=== PATIENT | male | born 1940 | race Caucasian/White ===

== ENCOUNTER → 2022-02-26 11:52 | Outpatient (CLI) | payer OTHER, SELFPAY ==
--- NOTE | 2022-02-26 | DI.MRI.S_ITS ---
PROCEDURE: MR LUMBAR SPINE WO CON INDICATIONS: Radiculopathy, lumbar region TECHNIQUE: Noncontrast sagittal T1 spin echo and T2 fast echo, sagittal STIR, and T2 fast spin echo through the lumbar spine. In cases with scoliosis, additional coronal T2 fast spin echo may be performed. COMPARISON: None. FINDINGS: Image quality: Excellent. Alignment and Curvature: There is S shaped scoliosis. There is minimal retrolisthesis seen T12-L1, L1-L2, L2-L3, and L3-L4. Mild grade 1 anterolisthesis is seen at L4-L5. Bone Marrow: Marrow is of normal overall signal. No acute vertebral body compression fractures. Spinal Cord: Conus medullaris terminates at the L1 level. Visualized cord demonstrates normal signal and size. Paraspinous Soft Tissues: No paravertebral masses. Lower thoracic spine degenerative changes are seen. T12-L1: At least moderate loss of disc height and disc signal can be seen. Moderate disc bulge is seen, which is slightly eccentric to the left. There is mild right-sided and [id number] left-sided facet hypertrophy seen. There is moderate left-sided and mild right-sided neural foraminal narrowing. Mild to moderate central canal narrowing is seen. L1-L2: At least moderate loss of disc height and disc signal can be seen. Mild to moderate disc bulge is seen. Moderate facet joint hypertrophy is seen. Associated hypertrophy of the ligamentum flavum can be seen. There is at least moderate left-sided and moderate right-sided neural foraminal narrowing. Moderate central canal narrowing is seen. L2-L3: Moderate to severe loss of disc height and disc signal can be seen. Reactive marrow endplate changes are seen, which demonstrate mixed T1 weighted and T2-weighted signal, and are attributed to a combination of edema and fatty metaplasia (Modic type I and Modic type II changes). Moderate generalized disc bulge is seen. Moderate facet hypertrophy is seen, right worse than left. There is moderate to severe right-sided and at least moderate left-sided neural foraminal narrowing. There is a degree of compression seen upon the exiting nerve roots. At least moderate central canal narrowing is seen. L3-L4: Moderate to severe loss of disc height and disc signal can be seen. Reactive marrow endplate changes are seen, which are hyperintense on T1-weighted and T2-weighted imaging and most consistent with fatty metaplasia (Modic type II changes). There is at least moderate disc bulge seen, which is eccentric to the right. Moderate facet hypertrophy is seen, right worse than left. Associated hypertrophy of the ligamentum flavum can be seen. There is moderate to severe right-sided and at least moderate left-sided neural foraminal narrowing. There is a degree of compression seen upon the exiting nerve roots. At least moderate central canal narrowing is seen. L4-L5: Moderate loss of disc height is seen. Loss of disc signal is seen. At least moderate disc bulge is seen, with a central disc protrusion. Prominent facet hypertrophy is seen. Associated hypertrophy of the ligamentum flavum can be seen. There is moderate to severe bilateral neural foraminal narrowing seen, with an associated a degree of compression seen upon the exiting nerve roots. There is severe central narrowing seen at this level, as on series 8, image 5. L5-S1: Mild loss of disc height is seen. Loss of disc signal is seen. Mild to moderate disc bulge is seen, with a mild central disc protrusion. There is a focal annular fissure seen posteriorly. At least moderate facet hypertrophy is seen. Moderate bilateral neural foraminal narrowing is seen. At least moderate central canal narrowing is seen. IMPRESSION: Multiple levels of prominent lumbar spine degenerative change are seen, which are overall worst at L4-L5 level. Several sites of significant neural foraminal narrowing can be seen, with associated exiting nerve root compression. Dictated by: Donnie Arndt M.D. on 02/26/2022 at 15:42 Approved by: Donnie Arndt M.D. on 02/26/2022 at 15:47
== END ==
PROVIDERS: PCP Family Medicine; Referring Provider Orthopaedic Surgery; Visit Provider Orthopaedic Surgery
DX: M47.26 Other spondylosis with radiculopathy, lumbar region (principal); M47.27 Other spondylosis with radiculopathy, lumbosacral region; M48.061 Spinal stenosis, lumbar region without neurogenic claudication; M48.07 Spinal stenosis, lumbosacral region
CPT/HCPCS: 72148

== ENCOUNTER → 2022-03-11 10:48 | Outpatient (CLI) | payer MEDICARE, SELFPAY ==
--- NOTE | 2022-03-11 | DI.CT.S_ITS ---
PROCEDURE: CT LUMBAR SPINE WO CON INDICATIONS: lumbar stenosis with neurogenic claudication TECHNIQUE: Noncontrast 3 mm thick sections acquired from the T12 level to the sacrum. Sagittal and coronal reformats were constructed. For radiation dose reduction, the following was used: automated exposure control. COMPARISON: None. FINDINGS: Image quality: Excellent. Bones: There is normal bony alignment. No acute vertebral body compression fractures. No suspicious lytic or blastic bony lesions. No pars defects. T11-12: Disc space narrowing, vacuum disc changes, endplate degenerative changes, anterior and posterior disc osteophytes, and diffuse disc bulge. Moderate bilateral foraminal stenosis. Moderate central canal stenosis. T12-L1: Disc space narrowing, vacuum disc changes, endplate degenerative changes, anterior and posterior disc osteophytes, and diffuse disc bulge. Mild right and moderate left foraminal stenosis. L1-L2: Disc space narrowing, vacuum disc changes, endplate degenerative changes, anterior and posterior disc osteophytes, and diffuse disc bulge. Mild bilateral foraminal stenosis. The central canal appears patent L2-L3: Disc space narrowing, vacuum disc changes, endplate degenerative changes, anterior and posterior disc osteophytes, and diffuse disc bulge. Moderate right and mild left foraminal stenosis. The central canal appears patent L3-L4: Disc space narrowing, vacuum disc changes, endplate degenerative changes, anterior and posterior disc osteophytes, and diffuse disc bulge. Moderate right and mild left foraminal stenosis. Moderate to severe central canal stenosis. L4-L5: Disc space narrowing, vacuum disc changes, endplate degenerative changes, anterior and posterior disc osteophytes, and diffuse disc bulge. Severe central canal stenosis. L5-S1: Disc space narrowing, vacuum disc changes, endplate degenerative changes, anterior and posterior disc osteophytes, and diffuse disc bulge. Moderate right and no left foraminal stenosis. Central canal stenosis. Soft tissues: No retroperitoneal masses or hematomas. Visualized aorta is normal in caliber. IMPRESSION: 1. Multilevel severe lumbar spondylosis with loss of disc space height, endplate degenerative changes, vacuum disc changes, disc osteophytes, facet arthrosis, and multilevel foraminal stenosis. 2. Central canal stenosis at multiple levels most prominently at T11-12, L2-3, L3-4, L4-5, and L5-S1. Dictated by: Sreekanth Grimm M.D. on 03/11/2022 at 12:13 Approved by: Sreekanth Grimm M.D. on 03/11/2022 at 12:32
== END ==
PROVIDERS: PCP Family Medicine; Referring Provider Orthopaedic Surgery Orthopaedic Surgery of the Spine; Visit Provider Orthopaedic Surgery Orthopaedic Surgery of the Spine
DX: M48.062 Spinal stenosis, lumbar region with neurogenic claudication (principal); M48.07 Spinal stenosis, lumbosacral region; M48.04 Spinal stenosis, thoracic region; M47.816 Spondylosis without myelopathy or radiculopathy, lumbar region
CPT/HCPCS: 72131

== ENCOUNTER → 2022-04-15 10:38 | Outpatient (CLI) | payer MEDICARE, SELFPAY ==
[2022-04-15 11:39] LABS: Add Manual Diff / Slide Review NO; Basophils Absolute Auto 100 /uL (0-100); Eosinophils Absolute Auto 200 /uL (0-450); Eosinophils Percent Auto 3.4 % (2-4); Hematocrit 41.6 % (41-53); Hemoglobin 14.3 g/dL (13.5-17.5); Lymphocytes Absolute Auto 1400 /uL (1100-4500); Lymphocytes Percent Auto 22.5 % (25-40); Mean Corpuscular HGB Conc 34.3 % (30-36); Mean Corpuscular Hemoglobin 32.5 PG (26-34); Mean Corpuscular Volume 94.8 fL (80-100); Monocytes Absolute Auto 500 /uL (0-900); Monocytes Percent Auto 8.3 % (3-14); Neutrophils Absolute Auto 4100 /uL (1500-7000); Neutrophils Percent Auto 64.8 % (50-75); Platelet Count 205 X10^3/uL (150-400); Red Blood Cell Count 4.39 X10^6/uL (4.5-5.9); Red Cell Distribution Width 13.9 % (11.6-14.8); White Blood Cell Count 6.4 X10^3/uL (4.5-11.0)
[2022-04-15 11:44] LABS: Hemoglobin A1C% w Est Avg Glu 5.3 % (4.0-6.0)
[2022-04-15 11:54] LABS: BUN Creatinine Ratio 23.4 (6-22); Blood Urea Nitrogen 18 mg/dL (9-20); Calcium 9.6 mg/dL (8.4-10.2); Carbon Dioxide 27 mmol/L (22-32); Chloride 106 mmol/L (98-107); Estimated Glomerular Filt Rate > 60 mL/min (>60); Glucose 102 mg/dL (80-110); HEMOLYSIS < 15 (0-50); Potassium 4.3 mmol/L (3.4-5.1); Sodium 141 mmol/L (137-145)
== END ==
PROVIDERS: PCP Family Medicine; Referring Provider Orthopaedic Surgery Orthopaedic Surgery of the Spine; Visit Provider Orthopaedic Surgery Orthopaedic Surgery of the Spine
DX: Z01.812 Encounter for preprocedural laboratory examination (principal); R73.9 Hyperglycemia, unspecified; Z01.818 Encounter for other preprocedural examination
CPT/HCPCS: 36415; 80048; 83036; 85025; 93005

== ENCOUNTER → 2022-05-09 10:09 | Outpatient (CLI) | payer MEDICARE, SELFPAY ==
[2022-05-09 11:00] LABS: COVID19 -Nasal RAPID Negative (Negative)
== END ==
PROVIDERS: PCP Family Medicine; Referring Provider Orthopaedic Surgery Orthopaedic Surgery of the Spine; Visit Provider Orthopaedic Surgery Orthopaedic Surgery of the Spine
DX: Z20.822 Contact with and (suspected) exposure to COVID-19 (principal)
CPT/HCPCS: 87635; C9803

== ENCOUNTER 2022-05-12 08:14 | Inpatient (IN) | payer MEDICARE, SELFPAY ==
[2022-05-05 08:43] VITALS: BMI 23.5
[2022-05-12] VITALS (13 sets, daily range): BP systolic 116–164; BP diastolic 62–87; PULSE 60–88; RESP 14–20; TEMP 35.7–37; O2SAT 95–99; BMI 23.3
[2022-05-12] MEDS: LACTATED RINGERS 1,000 ML 42 ML IV ×2 (08:33→10:51)
--- NOTE | 2022-05-12 09:22 | PM.PREOP ---
Pre-operative Note COVID-19 COVID-19 status: Negative Result date/Date tested (Pos, Neg/Pending): 05/11/22 Criteria for continued procedure: Expected advancement of disease process, Possibility delay results in more complex future surgery or treatment, Increased loss of function, Continuing or worsening of significant or severe pain, Deterioration of the patient's condition or overall health and Delay expected to result in less-positive ultimate med/surg outcome Interval Note History & Physical reviewed/Exam performed by Physician: Yes Changes to H&P: No
[2022-05-12] MEDS: CEFAZOLIN 2 GM/100 ML PREMIX 100 ML IV ×3 (10:24→21:28)
--- NOTE | 2022-05-12 10:39 | SUR.OPER ---
Prone on spine table, head in foam head support, padded chest and pelvic supports, gel pad at knees, lower legs supported by pillows; nipples, genitalia and toes free of pressure, arms secured on foam padded arm boards at <90 degrees abduction. Tape over blanket at thigh secured to table.
[2022-05-12] MEDS: BUPIVACAINE LIPOSOME 266 MG/20 ML VIAL INJ (10:45)
[2022-05-12] MEDS: BUPIVACAINE 0.5% W/ EPI (PF) 30 ML VIAL INJ (10:45)
--- NOTE | 2022-05-12 14:20 | DI.RAD.S_ITS ---
PROCEDURE: XR LUMBAR SPINE 2-3V INDICATIONS: L3-4, L4-5 TLIF (ROOBOT) TECHNIQUE: Multiple spot fluoroscopic intraoperative images of the lumbar spine COMPARISON: [facility], [place], CT LUMBAR SPINE WO CON, 03/11/2022, 10:55. FINDINGS: Spot fluoroscopic intraoperative images demonstrate placement of posterior fixation hardware at L3 through L5 with pedicle screws, interbody rods, and disc spacers. Levoconvex curvature of spine is noted. There is limited evaluation of osseous structures. IMPRESSION: Status post posterior lumbar spinal fixation at L3 through L5. Approved by: Emerson Benito M.D. on 05/12/2022 at 15:44
--- NOTE | 2022-05-12 14:22 | PM.OP.1 ---
Operative Date/Time/Diagnoses Date of procedure: 05/12/22 Time of procedure: 11:00 Pre-op diagnosis: 1. L3-4, L4-5 spondylolisthesis 2. Lumbar spinal stenosis with neurogenic claudication Post-op diagnosis: same Procedure & Clinicians Procedure: 1. L3-4, L4-5 Postero-lateral and posterior interbody fusion 2. L3-4, L4-5 interbody cage placement. 3. L3-4, L4-5 decompressive laminectomy with bilateral facetecomies 4. L3-4, L4-5 Posterior segmental instrumentation 5. Ludlow of bone marrow from iliac crest 6. Utilization of microsurgical technique and operating microscope Same procedure as scheduled: Yes Indications: Patient has been having chronic back pain and worsening lumbar radiculopathy and symptoms of neurogenic claudication. Patient failed multiple conservative management with worsening pain weakness and numbness in his lower extremity. Patient has been having difficulty performing activity of daily living. After discussing risks benefits of treatment options, patient elected proceed with surgery. Surgeon: Marek Zelaya Scada Operator: Dameon Samayoa Click Yes if Unassisted: No Anesthesia Type: General Operative Notes Closure Type: primary Specimen(s): none sent Prosthetic devices, grafts, tissues, transplants, or devices: Globus CREO MIS screws, Rise cages Applied: catheter Estimated Blood Loss (mL): 150 Blood products transfused: none Procedure in detail: Patient was seen in the preoperative area. Risks and benefits of the surgery was discussed with the patient. Informed consent was obtained from the patient and placed in the chart. Surgical site was marked. Patient was taken to the operative room. General anesthesia was administered. Prophylactic antibiotic was given to the patient less than 30 min before the incision was made. Patient was placed into a prone position on the Cyrus table. Patient's back was then prepped and draped in the sterile fashion. Time-out was performed at this time. After patient was prepped and draped, patient's PSIS was palpated and marked bilaterally. Small 1 cm incision was made over the PSIS for placement of the reference probes. Two trocar was placed into the PSIS 1 on each side. The reference probe was attached to the trocar of the reference apparatus. At this time the C-arm imaging was used to confirm AP and lateral of L3, L4-L5 vertebrae and merged the C-arm imaging using the [employer] robotic navigation system with the CT of the lumbar spine. After successful merging was completed and confirmed, skin marker was used to eloy out the skin incision using the [employer] robotic arm. Bilateral incision was made at this time. Pre templated trajectory was used and guided using the [employer] robotic navigation system for bilateral L3 L4, L5 pedicle screw placement. This was done by using the robotic arm to guide the high-speed bur to make a cortical entry point. Next a drill was placed also using the robotic arm and guided using the navigation system drilling partially through bilateral L3, L4, L5 pedicles. Next L3, L4, L5 pedicle screws it was pre templated and measured was placed onto the power chuck wagon driver and inserted into the pedicles bilaterally. After all 6 screws were placed C-arm imaging was taken of both AP and lateral to confirm the placement. Excellent placement of the screws were confirmed and a matched precisely with the pre planned screw placement using the navigation system. MARs retractor was inserted using GOGETMi / ?.??ivation guidence. Globus MARS retractors was placed inside the incision and docked onto the L3, L4 lamina. Using microsurgical technique and operating microscope, a L3, L4 laminectomy and L3-4, L4-5 facetectomy was performed using a Kerrison rongeur. Patient was found have severe lateral recess and neural foramen stenosis which was fully decompressed after the laminectomy facetectomy. More than 75% of the facets were removed during the process of decompression rendering L3-4, L4-5 level grossly unstable and required a fusion procedure at the same time. The disc space at L3-4, L4-5 was identified, and a total diskectomy was performed at L3-4, L4-5 level. The endplates were decorticated using a rasp and shaver. The total diskectomy and decortication was performed at L3-4, L4-5 level in order to to accomplish a L3-4, L4-5 fusion. The local bone from the laminectomy and facetectomy was saved for local bone grafting. After the total diskectomy and decortication was completed, Trifecta bone graft material was combined with local bone that was harvested earlier. At this time, a separate skin is incision was made over the iliac crest. A Jamshidi needle was inserted into the iliac crest through a separate skin incision. 5 cc of bone marrow aspiration was obtained through the separate skin incision using a Jamshidi needle from the iliac crest. The bone marrow aspiration was combined with local bone and the Trifecta bone grafting material. The bone grafting material was placed into the L3-4, L4-5 interbody space along with expandable cages. One cage each was inserted into the L3-4 L4-5 interbody space along with bone graft material. The cage was expanded to its maximum height using the torque limiting screwdriver. The disc preparation as well as the cage insertion were also performed under navigation guidance. After the cage was placed, AP and lateral C-arm imaging was taken to confirm placement of the cage and excellent position was confirmed. Globus MARS retractor was inserted and docked onto the L3-4, L4-5 posterolateral gutter on the right side. Using the power drill, posterior-lateral decortication was performed at L3-4, L4-5 level until bleeding cortical bone was identified. The remaining bone grafting material was placed into the L3-4, L4-5 posterior lateral gutter he order to accomplish posterolateral fusion at the L3-4, L4-5 level. At this time the tulips were attached to the L3, L4-L5 pedicle screw shanks. After measuring the length of the rods, they were inserted into the tulips of the pedicle screws and locked in place using locking caps and torque limiting screwdriver bilaterally. Total 6 caps and 2 titanium rods was used in order to complete the posterior instrumentation construct. After all the hardware was placed, and confirmed with AP and lateral C-arm imaging, the wound was then irrigated with sterile normal saline and packed with Ray-Gee gauze for 3 min to accomplish hemostasis. After the gauze was removed the deep fascia was closed with #1 Vicryl suture. The subcutaneous layer was closed with 2-0 Vicryl. The skin was closed with skin lakeisha. Patient tolerated the procedure well. There were no complications. Neuro monitoring system was used to monitor patient's neurologic status throughout entire procedure. There was no disturbance of the neural monitoring signals throughout the case. Complications: none Post-operative Condition: stable Disposition: PACU Plan for aftercare: Admit to inpatient hospital
[2022-05-12] MEDS: HYDROMORPHONE 0.5 MG INJ IV (15:59)
[2022-05-12] MEDS: ACETAMINOPHEN 325 MG TABLET 650 MG PO (16:00)
[2022-05-12] MEDS: hydrOXYzine pamoate 25 MG CAPSULE PO (16:01)
[2022-05-12] MEDS: SODIUM CHLORIDE 0.9% 1,000 ML 100 ML IV (16:02)
[2022-05-12] MEDS: methocarbamoL 500 MG TABLET 1000 MG PO (19:37)
[2022-05-12] MEDS: DOCUSATE 100 MG CAPSULE PO (21:27)
[2022-05-12] MEDS: OXYCODONE IR 5 MG TABLET 10 MG PO (21:27)
[2022-05-12] MEDS: ATORVASTATIN 20 MG TABLET PO (21:27)
[2022-05-12] MEDS: SENNOSIDES 8.6 MG TABLET 17.2 MG PO (21:27)
[2022-05-13] MEDS: SODIUM CHLORIDE 0.9% 1,000 ML 100 ML IV (01:36)
[2022-05-13] MEDS: OXYCODONE IR 5 MG TABLET 10 MG PO ×2 (04:50→10:08)
[2022-05-13 05:35] LABS: Hematocrit 33.7 % (41-53); Hemoglobin 11.4 g/dL (13.5-17.5)
[2022-05-13] MEDS: LEVOTHYROXINE 125 MCG TABLET PO (05:52)
[2022-05-13] MEDS: CEFAZOLIN 2 GM/100 ML PREMIX 100 ML IV (05:53)
--- NOTE | 2022-05-13 06:02 | PC.NURSE ---
Patient medicated for pain as needed, able to sleep off and on. Rt. foot remains cool to touch and slightly less in strength than lt. leg.
[2022-05-13 07:18] VITALS: BP 125/64; PULSE 65; RESP 20; TEMP 37.1; O2SAT 95
[2022-05-13] MEDS: DOCUSATE 100 MG CAPSULE PO (08:54)
[2022-05-13] MEDS: LATANOPROST 0.005% OPHTH 2.5 ML 1 DROPS EYE-BOTH (08:54)
[2022-05-13] MEDS: BRIMONIDINE 0.2% OPHTH 5 ML 1 DROPS EYE-LEFT (08:54)
--- NOTE | 2022-05-13 09:45 | PT.IIE ---
Current Diagnoses Spondylolisthesis, lumbar region (05/12/22) Spinal stenosis, lumbar region with neurogenic claudication (05/12/22) Surgery Performed Operation Date: 05/12/22 09:45 Actual Procedures p L3-4, L4-5 TLIF w/ posterior instrumentation, L2-3 Hemilaminectomy -Robot(Not Applicable) - Marek Zelaya MD Surgical History (Last Reviewed 05/13/22 @ 11:14 by Nadine Garcia PA-C) H/O vasectomy Hx of fusion of cervical spine (~1997) Hx of sinus surgery Hx of tonsillectomy Medical History (Last Reviewed 05/13/22 @ 11:14 by Nadine Garcia PA-C) HLD (hyperlipidemia) Hypothyroidism Preglaucoma Spinal stenosis Physical Therapy Inpatient Evaluation/Re-Eval M1 PT/OT-IP Prior Functional Status Start: 05/13/22 11:39 Freq: NEEDED Status: Discharge Protocol: Document 05/13/22 11:05 [facility] (Rec: 05/13/22 11:59 [facility] [id number]) Medical Review Prior Functional Status Communication Independent Mobility and Gait Pt states did not use a device at home. Activities of Daily Living and IADL's Able to do ADl and IADL needs but had pain. Prior Functional Level (Other details) Pt's daughter to stay with him initially and also has a friend that lives close by to be assisting as well. Social History Household Members none Living Arrangements House Number of Floors (Floors) One Floor Number of Stairs To Enter/Railing? One step with right rail. Home Environment Standard Height Toilet,Walk in Shower Home Equipment Four Wheel Walker Additional Social History Comment Pt has a standard walker at home. M1 PT/OT-IP Prior Functional Status Start: 05/13/22 13:25 Freq: NEEDED Status: Active Protocol: Document 05/13/22 09:45 AB (Rec: 05/13/22 13:40 [id number]) Medical Review Prior Functional Status Medical History Reviewed Yes Communication able to make needs known Mobility and Gait pt stated that he is independent with all mobilities and ambulation without AD; stated that L knee usually gives out but has not have any falls Social History Household Members none Living Arrangements House Number of Floors (Floors) One Floor Number of Stairs To Enter/Railing? 1 step to enter Home Environment Standard Height Toilet,Walk in Shower Home Equipment Four Wheel Walker Additional Social History Comment pt's daughters will stay with pt for ~ 2 weeks and his best friend will also come in to assist him pt has a standard walker daugther and friend stated that they can borrow a FWW for him is needed M2 PT-IP Current Condition Start: 05/13/22 13:25 Freq: NEEDED Status: Active Protocol: Document 05/13/22 09:45 AB (Rec: 05/13/22 13:40 AB [email or web address]) Physical Therapy Current Condition Current Condition Evaluation Date 05/13/22 Treatment Diagnosis s/p L3-4, L4-5 TLIF; difficulty in walking Onset Date 05/12/22 M3 PT-IP Subjective Start: 05/13/22 13:25 Freq: NEEDED Status: Active Protocol: Document 05/13/22 09:45 AB (Rec: 05/13/22 13:40 AB [email or web address]) Subjective Physical Therapy Visit Type Type Initial Evaluation Visit Start Time 09:45 Visit Stop Time 10:51 Total Visit Minutes 66 Number of [employer] OFFICER Visits 0 Physical Therapy Visit Comments Patient Comments agreeable to do PT Therapy Pain Assessment Pain When Pain Assessed At Rest Location Lower Back Intensity 1 Scale Used increases to 5/10 with movement Pain Management Techniques Apply Cold,Modification of Treatment,Re-positioning, Timing of Activity with Medications M4 PT-IP Mobility and Gait Start: 05/13/22 13:25 Freq: NEEDED Status: Active Protocol: Document 05/13/22 09:45 AB (Rec: 05/13/22 13:40 AB [email or web address]) PT-Bed Mobility Assessment Rolling Type of Rolling Log Rolling Level of Assist Standby Assistance Supine to Sit Supine to Sit Standby Assistance Sit to Supine Sit to Supine Minimal Assistance,1 Person Assistance PT-Transfer Assessment Sit to and From Stand Sit to and from Stand Minimal Assistance,Moderate Assistance,1 Person Assistance ,Use of Upper Extremities Equipment Transfer Assistive Device Gait Belt,Front Wheeled Walker Orthotic/Prosthetic Devices or Brace: No Transfers Transfer Destination Chair Transfer Technique Stand Step Pivot Transfer Ability Level of Assist Minimal Assistance,Moderate Assistance,1 Person Assistance ,Use of Upper Extremities Comments Mobility Comments pt's daughter and friend in room with pt. educated pt regarding back precautions and log roll bed mobility. completed log roll supine to sit SBA and cues. able to sit on EOB SBA. completed sit to stand x 2 attempts mod A with first attempt and min to mod on 2nd attempts. required max cues for techniques. completed step transfer to chair using FWW min to mod A. completed sit to stand from the chair min to mod A and cues and ambulated in room using FWW mod A ~ 30 ft with (+) L knee buckling with recovery. pt sat back on chair. educated on safety and quads activation on BLE during standing and ambulation. caregiver training conducted. educated daughter on how to use safety belt and how to assist pt. daughter was able to put safety belt on pt and assisted pt with sit to stand and ambulation in room using FWW. daugther was able to safely assist pt. pt completed sit<>supine log roll with daughter assisting with elevating LE up on bed. educated pt and daughter with stair climbing. pt completed ambulated to the platform step. PT assisted pt on first set and pt completed up/down step using FWW min to mod A and cues for safety. pt repeated with daughter assisting and completed safely . pt ambulated back to his chair using FWW min to mod A. increase unsteadiness noted with slight buckling on R knee and pt c/o feeling tired. pt sat on chair and positioned. call light and table placed within reach. Pt and daugther without further concerns. Gait Assessment Gait Gait Assistance Required: Minimum Assistance,Moderate Assistance,1 Person Assist Distance (Feet) 30 Able to Maintain Weight Bearing Status Yes During Gait Assistive Devices Assistive Device Gait Belt,Front Wheeled Walker Orthotic/Prosthetic Devices or Brace: No Gait Deviations General Gait Pattern Antalgic,Decreased Stride Length,Decreased Feet Clearance,Step-to Gait Factors Limiting Gait Function Factors Limiting Gait Function Decreased Activity Tolerance, Decreased Strength,Limited Range of Motion,Pain,Poor Balance,Respiratory Distress Stair Climbing Assessment Evaluation Level of Assist On Stairs Minimal Assistance,Moderate Assistance,1 Person Assistance Devices Stair Climbing Assistive Devices Front Wheel Walker Technique/Endurance Stair Climbing Direction Ascend and Descend Stair Climbing Technique Step to Step Number of Steps Climbed 1 Query Text: Stair Climbing Set # Repetitions (reps) 2 PT-Balance Assessment Sitting Balance and Reactions Static Sitting Balance Ability Normal Dynamic Sitting Balance Ability Good Standing Balance and Reactions Static Standing Balance Ability Fair Dynamic Standing Balance Ability Fair Device Used FWW M5 PT-IP Objective Assessments Start: 05/13/22 13:25 Freq: NEEDED Status: Active Protocol: Document 05/13/22 09:45 AB (Rec: 05/13/22 13:40 AB [id number]) Orientation Orientation/Cognition Level of Alertness Alert Orientation Name,Place,Situation Language Function Ability Hard of Hearing Safety Awareness Decreased Safety Awareness Memory Description Short Term Impaired Gross Range of Motion Lower Extremity ROM Assessment Within Functional Limits Strength Lower Extremity Strength Assessment Bilaterally Impaired Comments Strength Comments RLE: 3+/5 LLE : 4-/5 but iwth (+) crepitus on knee: pt stated that he is pending knee surgery Sensation Assessment Sensation Gross Sensation WNL Muscle Tone Muscle Tone WNL Yes M6 PT-IP Treatment Start: 05/13/22 13:25 Freq: NEEDED Status: Active Protocol: Document 05/13/22 09:45 AB (Rec: 05/13/22 13:40 AB [email or web address]) Physical Therapy Treatment Education Education Provided Precautions,Weight Bearing Status,Post-Op Packet,Safety M7 PT-IP Assessment and Plan Start: 05/13/22 13:25 Freq: NEEDED Status: Active Protocol: Document 05/13/22 09:45 AB (Rec: 05/13/22 13:40 AB [id number]) PT Summary Assessment and Plan Potential Rehabilitation Potential Fair Status of Condition at Evaluation Evolving Summary Impairments Pain,ROM,Strength,Balance, Coordination,Sensation,Tone, Cognition,Bed Mobility, Transfers,Gait,Activity Tolerance Assessment Summary pt requiring min to mod A with mobility and caregiver training conducted. Daughter was able to assist pt with mobility safety. pt may go home when medically stable. recommending use of FWW at this time. pt and family agreed and stated that they will be able to borrow one for pt. Goals Bed Mobility Goal Independent Transfer Goal Independent,Front Wheeled Walker Gait Goal Independent,Front Wheel Walker Gait Distance 100 Other Goals up/down 1 step using FWW SBA Days to Meet Goals 5 Frequency of Treatment Frequency Of Treatment Twice a Day Treatment Plan Physical Therapy Treatment Plan Bed Mobility Training,Transfer Training,Gait Training, Therapeutic Exercise,Balance Retraining,Post Op Education, Discharge Planning,Hot or Cold Pack,Neuromuscular Re-ed, Coordination Retraining,Manual Therapy Precautions Lumbar Precautions Log Roll,No Twisting,Limit Bending,Lifting Restriction of 10 lbs,Gait Belt above Incisional Area Recommendations To Nursing Amount of Assist Needed 1 Person Assist Discharge Recommendations PT Discharge Recommendations Home with / Assist Available,Home Health Transportation Needs at Discharge Private Vehicle,Wheelchair/ Cabulance
--- NOTE | 2022-05-13 11:03 | PM.DS.1 ---
History of Present Illness History of Present Illness Date Patient Seen: 05/13/22 Time Patient Seen: 11:03 Chief complaint: L3-5 TLIF w/ Robot Narrative: Patient is sitting upright in his chair this morning with daughter and friend at bedside. He states he worked with PT this morning and had no difficulty. They have cleared him for discharge. He states his pain is well controlled with medication, discussed medications to be sent to pharmacy. States he has a walker at home and is in the process of getting a seat riser. Patient still has Dietrich catheter in place, his nurse Amberly is taking it out soon. Discharge Providers Provider Date of admission: 05/12/22 08:14 Discharge Date: 05/13/22 Primary care physician: Jann Lopez MD Consults: 05/05/22 14:50 Consult to Anesthesiology Routine Comment: Consulting Provider: Anesthesiologist Reason for consultation: PAC Courtesy re: Abnormal pre-op EKG 05/12/22 15:33 Consult to Occupational Therapy Evaluate & Treat Comment: Physician Instructions: Evaluate and treat Consult to Physical Therapy Evaluate & Treat Comment: Physician Instructions: Evaluate and Treat Discharge provider: Nadine Garcia PA-C Summary Hospital Course Discharge Diagnosis: s/p L3-5 TLIF Hospital Course: Operative Date/Time/Diagnoses Date of procedure: 05/12/22 Time of procedure: 11:00 Pre-op diagnosis: 1. L3-4, L4-5 spondylolisthesis 2. Lumbar spinal stenosis with neurogenic claudication Post-op diagnosis: same Procedure & Clinicians Procedure: 1. L3-4, L4-5 Postero-lateral and posterior interbody fusion 2. L3-4, L4-5 interbody cage placement. 3. L3-4, L4-5 decompressive laminectomy with bilateral facetecomies 4. L3-4, L4-5 Posterior segmental instrumentation 5. [place] of bone marrow from iliac crest 6. Utilization of microsurgical technique and operating microscope Same procedure as scheduled: Yes Indications: Patient has been having chronic back pain and worsening lumbar radiculopathy and symptoms of neurogenic claudication. Patient failed multiple conservative management with worsening pain weakness and numbness in his lower extremity.? Patient has been having difficulty performing activity of daily living.? After discussing risks benefits of treatment options, patient elected proceed with surgery. Surgeon: Marek Zelaya Major Account Representative: Dameon Samayoa Click Yes if Unassisted: No Anesthesia Type: General Operative Notes Closure Type: primary Specimen(s): none sent Prosthetic devices, grafts, tissues, transplants, or devices: Globus CREO MIS screws, Rise cages Applied: catheter Estimated Blood Loss (mL): 150 Blood products transfused: none Status at Discharge Cognitive/behavioral status at discharge: oriented Functional status at discharge: uses cane/walker Overall status at discharge: patient is progressing back to baseline Exam Vital Signs (past 8 hours): - 05/13/22 07:18 Temperature 98.8 F Pulse Rate 65 Respiratory Rate 20 Blood Pressure 125/64 Pulse Oximetry 95 Oxygen Flow Rate 0 Oxygen Delivery Method Room Air Oxygen Flow Rate 0 Narrative Exam Narrative: Awake, alert, and oriented. Strength and sensation intact to bilateral lower extremities, the left has more sensation than right. Bilateral calves soft, compressible, nontender with no palpable masses or cords. Intraoperative bandage clean, dry, and intact. Dietrich catheter in place, passing clear yellow urine. Objective Labs 05/13/22 04:06 Labs: Laboratory Results - last 24 hr 05/12/22 05/13/22 17:42 04:06 Hgb 11.4 L Hct 33.7 L Nasal Screen MRSA (PCR) Negative for mrsa PFSH Medical History HLD (hyperlipidemia) Hypothyroidism Preglaucoma Spinal stenosis Surgical History H/O vasectomy Hx of fusion of cervical spine (~1997) Hx of sinus surgery Hx of tonsillectomy Social History household members: none Smoking Status: Former smoker alcohol intake: current Discharge Assessment & Plan Assessment and Plan Assessment: s/p L3-5 TLIF Discharge Plan Discharge Plan Patient Disposition: Home Nursing Discharge Comment: Discharge home when able to urinate independently Discharge orders & Medications Prescriptions: New oxycodone 5 mg Tablet 10 mg PO Q4-6H PRN (Reason: Pain, Severe (7-10)) Qty: 42 0RF Continued latanoprost 0.005 % Drops 1 drp EYE-BOTH DAILY methocarbamol 500 mg Tablet 1,000 mg PO Q8H PRN (Reason: Muscle spasm/pain) simvastatin 40 mg Tablet 40 mg PO DAILY levothyroxine 125 mcg Tablet 125 mcg PO DAILY brimonidine [Alphagan P] 0.15 % Drops 1 drp EYE-LEFT QAM Excedrin Extra Strength 250-250-65 mg Tablet 2 tab PO Q6H PRN (Reason: Pain) Follow up/Referrals: Jann Lopez MD [Primary Care Provider] - Nadine Garcia PA-C [[employer]] - Marek Zelaya MD [Physician] - (Follow up with Dr. Zelaya as scheduled on 05/22/22 at 10:00am at the [place] office. ) Diet/Activity/Treatments Diet: Diet as Tolerated Activity: Up and walking as physical therapy. No bending, twisting or lifting more than 2 pounds. Cold/Heat Therapy: Ice as needed Skin/Wound/Dressing Care Report to your healthcare provider any signs of infection, such as:: chills, fever, night sweats, unusual drainage and unusual redness Dressing: May shower. Keep dressing clean, dry, and intact until follow up visit. If it gets wet, please call our office for dressing change. Visit Report/Discharge Packet Instructions: DI for Transforaminal Lumbar Interbody Fusion Stand Alone Forms: Patient Portal/API, Stroke Signs & Symptoms, Surgery Discharge Discharge Data Primary Care Provider: Jann Lopez Quality VTE Deep Vein Thrombosis/Pulmonary Embolism Present on Admission: No
--- NOTE | 2022-05-13 11:33 | OT.IP.EVAL ---
Current Diagnoses Spondylolisthesis, lumbar region (05/12/22) Spinal stenosis, lumbar region with neurogenic claudication (05/12/22) Surgery Performed Operation Date: 05/12/22 09:45 Actual Procedures p L3-4, L4-5 TLIF w/ posterior instrumentation, L2-3 Hemilaminectomy -Robot(Not Applicable) - Marek Zelaya MD Past Medical History (Last Reviewed 05/13/22 @ 11:14 by Nadine Garcia PA-C) HLD (hyperlipidemia) Hypothyroidism Preglaucoma Spinal stenosis Surgical History (Last Reviewed 05/13/22 @ 11:14 by Nadine Garcia PA-C) H/O vasectomy Hx of fusion of cervical spine (~1997) Hx of sinus surgery Hx of tonsillectomy Occupational Therapy Inpatient Evaluation/Re-Eval M1 PT/OT-IP Prior Functional Status Start: 05/13/22 11:39 Freq: NEEDED Status: Active Protocol: Document 05/13/22 11:05 [facility] (Rec: 05/13/22 11:59 [facility] [id number]) Medical Review Prior Functional Status Communication Independent Mobility and Gait Pt states did not use a device at home. Activities of Daily Living and IADL's Able to do ADl and IADL needs but had pain. Prior Functional Level (Other details) Pt's daughter to stay with him initially and also has a friend that lives close by to be assisting as well. Social History Household Members none Living Arrangements House Number of Floors (Floors) One Floor Number of Stairs To Enter/Railing? One step with right rail. Home Environment Standard Height Toilet,Walk in Shower Home Equipment Four Wheel Walker Additional Social History Comment Pt has a standard walker at home. M2 OT-IP Current Condition Start: 05/13/22 11:39 Freq: Status: Active Protocol: Document 05/13/22 11:05 [facility] (Rec: 05/13/22 11:59 [facility] [id number]) Occupational Therapy Current Condition Current Condition Evaluation Date 05/13/22 Treatment Diagnosis S/p L3-4 , L4-5 TLIF Diagnosis Onset Date 05/12/22 Post Operative Precautions Lumbar Precautions Log Roll,No Twisting,Limit Bending,Lifting Restriction of 10 lbs,Gait Belt above Incisional Area M3 OT- IP Subjective and Pain Start: 01/24/23 11:39 Freq: Status: Active Protocol: Document 05/13/22 11:05 [facility] (Rec: 05/13/22 11:59 [facility] [id number]) OT- Subjective Occupational Therapy Visit Type Type Initial Evaluation Visit Start Time 11:05 Visit Stop Time 11:33 Total Visit Minutes 28 Occupational Therapy Visit Comments Patient Comments Pt was in the bathroom when OT came to see the pt. Pt's daughter and friend present. Patient/Caregiver Goals To go home. OT Pain Assessment Pain When Pain Assessed During Mobility Pain Present Pain Present Pain Reported Location right hip to leg Intensity 7 Scale Used Numeric (0 - 10) M4 OT- IP ADL's Start: 05/13/22 11:39 Freq: Status: Active Protocol: Document 05/13/22 11:05 [facility] (Rec: 05/13/22 11:59 [facility] [id number]) OT [id number] Comments OT Self-Feeding Comments Not at meal time. OT ADL-Grooming General Evaluation Grooming Ability Independent Areas Needing Assistance Retrieving/Set-up of Grooming Items OT ADL-Oral Care General Eval Oral Care Ability Standby Assistance Areas of Assistance Retrieving/Set-Up of Items Comments Oral Care Comments VC to hinge at his hips or just spit into a cup in order to best follow his back precautions. OT ADL-Dressing General Eval Lower Body Dressing Ability Maximum Assistance Areas Needing Assistance Retrieving/Set-up of Clothing, Socks Comments OT Dressing Comments Able to practice use of sock aid and medical surgical tech for LB dressing needs. OT ADL-Toileting Comments OT Toileting Comments Suggested for use of wipes, urinal and limit fluids later in the day. In addition to call for assistance. Pt's daughter states while getting to the bathroom earlier had a loss of balance. OT ADL-Bathing Comments OT Bathing Comments Pt insistent to shower at home . Suggested to get a shower chair or even tub bench as pt to have a knee sx in the near future, hand held shower spray and long handled brush to help with showering needs. M5 OT- IP IADL's Start: 05/13/22 11:39 Freq: Status: Active Protocol: Document 05/13/22 11:05 [facility] (Rec: 05/13/22 11:59 [facility] [id number]) OT-Instrumental Activities of Daily Living Home Safety Awareness Home Safety Comments Pt is a bit groggy at this time and best to have at least supervision for all needs. Medication Management Medication Management Comments Pt is a bit groggy at this time and best to have at least supervision for all needs. Money Management Money Management Comments Pt is a bit groggy at this time and best to have at least supervision for all needs. Meal Preparation Meal Preparation Comments Pt is a bit groggy at this time and best to have at least supervision for all needs. Utility Driver Utility Driver Comments Pt is a bit groggy at this time and best to have at least supervision for all needs. M6 OT- IP Functional Cognition Start: 05/13/22 11:39 Freq: Status: Active Protocol: Document 05/13/22 11:05 [facility] (Rec: 05/13/22 11:59 [facility] [id number]) Cognitive Factors Limiting Selfcare Function Cognitive Ability Level of Alertness Alert Patient Orientation Name,Place,Situation Attention Span Ability Capable of Focused Attention, Capable of Sustained Attention Ability to Follow Commands Able to Follow One Step Commands with Increased Time, Able to Follow One Step Commands with Repetition Memory Description Short Term Impaired Safety Awareness Underestimates Need for Assistance Cognitive Comments Cognitive Assessment Comments Pt having difficulty to recall and follow his back precautions. Pt needing vc for hand placement and for FWW safety. Pt's daughter able to safely instruct pt for back precautions needs for ADl and mobility needs. M7 OT- IP Mobility and Balance Start: 05/13/22 11:39 Freq: Status: Active Protocol: Document 05/13/22 11:05 [facility] (Rec: 05/13/22 11:59 [facility] [id number]) OT-Transfer Assessment Sit to and From Stand Sit to and from Stand Contact Guard Assistance, Minimal Assistance Transfers Transfer Ability Standby Assistance,Contact Guard Assistance Technique Transfer Destination Chair,Toilet Transfer Technique Stand Step Pivot Devices Transfer Assistive Devices Gait Belt,Front Wheeled Walker Comments Mobility Comments CGA to DURGA to stand form lower surfaces. CGA to close SBA with the FWW. VC to keep the FWW in the proper distance . Pt's daughter able to show good safety for gait belt management and how to assist pt for transfer at this time. OT- Balance Assessment Sitting Balance and Reactions Static Sitting Balance Ability Good Dynamic Sitting Balance Ability Fair Standing Balance and Reactions Static Standing Balance Ability Fair Dynamic Standing Balance Ability Fair M8 OT- IP Objective Assessments Start: 05/13/22 11:39 Freq: Status: Active Protocol: Document 05/13/22 11:05 [facility] (Rec: 05/13/22 11:59 [facility] [id number]) OT-Muscle Tone Assessment Muscle Tone WNL Yes M9 OT- IP Assessment and Plan Start: 05/13/22 11:39 Freq: Status: Active Protocol: Document 05/13/22 11:05 [facility] (Rec: 05/13/22 11:59 [facility] [id number]) OT Summary Assessment and Plan Potential Rehabilitation Potential Good Analytic Complexity at Evaluation Low Summary OT Impairments Pain,Balance,Functional Cognition,Functional Mobility, Grooming,Dressing,Toileting, Bathing,Toilet Transfers, Shower Transfers,Activity Tolerance Progress Towards Goals Progressing Toward Goals,Slow Progress due to Pain,Slow Progress due to Cognition Assessment Summary Pt LOW complexity and main barriers are pain , needing reminders for his back precautions , and one person assist for some ADl and mobility needs. Pt's daughter present for caregiver training and able to safely assist pt for gait belt management, ADl and mobility needs. A shower chair/tub bench, hand held shower spray ,and LB dressing equipment suggested for pt use. Pt to go home with 10/11 assist when medically stable. Suggested to pt's daughter while staying with the pt to look into needs that pt will have as suppose to have knee surgery in the near future and to get the equipment now so able to practice. Goals Self-Feeding Goal Independent Grooming Goal Independent Dressing Goal Independent Toileting Goal Independent Bathing Goal Independent Toilet Transfer Goal Independent Shower Transfer Goal Independent Days to Meet Goals 7 Frequency of Treatment Frequency Of Treatment Once a Day Treatment Plan OT Treatment Plan ADL Training,Functional Cognition Training,Functional Mobility,Patient/Family Education,Discharge Planning Other Treatment Recommendations and Next shower if still here Treatment Focus Discharge Recommendations OT Discharge Recommendations Home with 10/11 Assist Available Home Equipment Needs shower chair versus tub bench, HHSP, LB dressing equipment Transportation Needs at Discharge Private Vehicle
--- NOTE | 2022-05-13 12:00 | CM.DANOTE ---
DCP: Case received, EMR reviewed and met with patient. Introduced self and role. Was able to obtain information regarding patient's baseline activity level prior to surgery, as well as his current living situation. DCP assessment completed with information currently available. Patient is an 82 year old male who admitted yesterday morning to the care of the orthopedic team. PCP: Dr. Lopez at [facility]. Payer: confirmed: [facility]. Patient came to the hospital for a surgical procedure. Patient had L3-4, L4-5 postero-lateral and posterior interbody fusion. Patient has history of spondylolisthesis, lumbar spinal stenosis withneurogenic claudication. Met with patient in his room. He is alert and oriented, pleasant. Confirmed that he does reside alone in [place], off of [address], he has an [place] mailing address. At his baseline, he is independent, does not use any DME, and drives. Confirmed that he sees Dr. Lopez at [facility] for his primary care provider. Stated that his daughter, Ghazala, who just walked in the room with his friend, Trent, will be initially staying with him for a week. His younger daughter, Daly, will then be staying for a week, and his friend, Trent, may also be assisting. P: DCP to continue to follow. Plan is home when stable, he will be working with Júnior Polk RN/Refrigeration Unit Repairer Discharge Planning/Care Management CM Discharge Assessment Start: 05/13/22 11:57 Freq: Status: Active Protocol: Document 05/13/22 11:57 (Rec: 05/13/22 12:00 [id number]) Discharge Planning Assessment Assigned Software Configuration Specialist Yuliya Polk RN/Refrigeration Unit Repairer Advance Directives? Yes Advance Directives on File No History Provided By Patient,Medical Record Prior Living Arrangements House Household Members none Type of transporation used prior to Drives own vehicle admit Independent with ADL's Yes Is patient alert and oriented? Yes Caregiver for Another No Barriers to Discharge No Comment Patient has two daughters and a friend, one daughter will stay with him a week, other daughter will stay after that. Discharge Plan Home Transportation Arrangement Family or friend. Referrals Initiated None needed Whiteboard Updated in Patient Room with Yes name and ext. # of Software Configuration Specialist Review Status In Process Next Review Type Continued Stay Review Pre-Anesthesia Assessment Start: 05/05/22 08:43 Freq: Status: Complete Protocol: Document 05/05/22 08:43 [facility] (Rec: 05/05/22 09:57 [facility] [id number]) Pre-Anesthesia Assessment Preferred Name Estuardo Patient Information Reviewed Via Phone Assessment Assessment Completed With Patient Diagnostic Results BMP/CMP,CBC,EKG Comment Labs/EKG @ [facility] 04/15/22, COVID screen @ [facility] 05/09/22 Primary Care Provider Jann Lopez Seen Specialist in Last 12 Months Yes Specialist Seen Orthopedist Primary Language Austrian Unemployment Benefits Claims Taker Required No Height 5 ft 10 in Weight 164 lb Body Mass Index (BMI) 23.5 Hearing Ability Normal Visual Assist Glasses Dentition Type Teeth, Natural Present,Dental Implants Barriers to Learning None Hx Anesthesia Reactions No: Severe reaction to Demerol It knocked me out completely Hx Family Anesthesia Reaction No Hx Malignant Hyperthermia No Hx Blood Transfusions No Anesthesia Review Requested Yes: PAC courtesy re: abnormal pre-op EKG Additional comment No significant change from prior EKG 01/04/20 obtained, scanned to records Zmt Operator No alcohol intake current alcohol intake frequency a few times a week Smoking Status Former smoker how long ago did patient quit smoking Quit in 1976 Substance Use Type does not use Pain Present Pain Reported Musculoskeletal Symptoms Abnormal Gait,Back Pain, Difficulty Walking,Muscle Spasms,Radiating Pain into Limb History of Falling (Recent or History of No ) Patient is completely paralyzed or No completely immobile Mental Status Oriented to own ability Is patient on oxygen? No Does patient have ARCHULETA/SOB No Hx Sleep Apnea No Currently Taking a Beta Jose Martin No Can You Climb a Flight of Stairs Without Yes SOB Hx Chest Pain No Hx SOB No Hx Syncope or Dizziness No Anti-Coagulant Therapy No Has a Email Developer No Cardiac Testing No Hx Pacemaker/ICD No Pacemaker Rep Required? No Cardiac Clearance Received Not Applicable Diet Type At Home Regular Dysphagia No Gastrointestinal Symptoms None Chronic UTI No Urinary Catheter Present No Hx Urinary Self Catheterization No Diabetes No HgbA1C 5.3 Date 04/15/22 Hx Drug Resistant Organism No Presence of External or Internal Medical Yes: Cervical hardware Devices Have you had any close contact with No someone diagnosed with COVID-19? Received a COVID vaccine? No Marital Status / Lives With none Current Living Arrangements House Number of Floors (Floors) One Floor Support System Child/Children Does the Patient Have Assistance After Yes: Daughters will stay with Surgery pt to assist with care @ [place] Patient Discharge Plan Description Return Home Comment Pt advised possible same day surgery Feels Safe in Current Environment Yes Been Physically Hurt or Threatened By a No Person in Current Environment Do you have thoughts of harming yourself None or others? Are you currently considering suicide? No Do you have a plan to hurt yourself or No Plan others? Do You Have Any Spiritual Beliefs That No May Affect Your HC Choices? Do You Have Any Cultural Practices That No May Affect Your HC Choices? Comment Mormonism Who Can We Speak to About Patient's Care Family, friends Identifying Code for Release of Patient Declines to issue Information Health Care Proxy/Next of Kin Venkata Wilde (good friend) Health Care Proxy Emergency Contact Name Ghazala (daughter) Daly ( daughter) Emergency Contact Phone Number Ghazala: [phone] Daly: [phone] Advance Directives? Yes Advance Directives on File No Requested Patient Bring Advanced Yes Directives DOS Power of Sales And Merchandising Associate Yes Power of Sales And Merchandising Associate Name Venkata Wilde (good friend) Power of Sales And Merchandising Associate PAC Instructions Durable medical equipment, Medications to take/avoid, Nasal antibiotic,No ETOH/ petroleum product on skin DOS, NPO,Pre-surgical wash,Sensory aids,Sturdy shoes/comfortable clothes,Do not bring valuables and remove jewelry
== END 2022-05-13 12:20 | disposition home or self-care (01) | DRG 455 ==
LOC: AC 10:13 → ICU 15:27
PROVIDERS: Admitting Provider Orthopaedic Surgery Orthopaedic Surgery of the Spine; PCP Family Medicine; Referring Provider Orthopaedic Surgery Orthopaedic Surgery of the Spine; Visit Provider Orthopaedic Surgery Orthopaedic Surgery of the Spine
PROC: 0SG10AJ Fusion of 2 or more Lumbar Vertebral Joints with Interbody Fusion Device, Posterior Approach, Anterior Column, Open Approach (ICD-10-PCS; principal; 2022-05-12 09:45)
DX: M43.16 Spondylolisthesis, lumbar region (principal); M48.062 Spinal stenosis, lumbar region with neurogenic claudication; H40.009 Preglaucoma, unspecified, unspecified eye; E78.5 Hyperlipidemia, unspecified; E03.9 Hypothyroidism, unspecified; Z20.822 Contact with and (suspected) exposure to COVID-19; Z87.891 Personal history of nicotine dependence
CPT/HCPCS: 36415; 72100; 76000; 85014; 85018; 87635; 87797; 97162; 97165; 97530; 97535; C9803; C9290; J0330; J0690; J1100; J1170; J2405; J2704

== ENCOUNTER → 2024-06-01 09:58 | Outpatient (CLI) | payer MEDICARE, SELFPAY ==
[2022-05-12 16:41] VITALS: BMI 23.3
--- NOTE | 2024-06-01 10:02 | EKG_ITS ---
[facility] [address] [place] [address] Test Date: 2024-06-01 Pat Name: Sree Reyes Department: [facility] Room: Gender: Male Identity Management Consultant: CISCO : 1940 Requested By: Order Number: [id number] Reading MD: Richard Roberts MD Measurements Intervals [place] Rate: 68 P: 56 ME: 192 QRS: -63 QRSD: 140 T: 47 QT: 424 QTc: 450 Interpretive Statements Normal sinus rhythm Right bundle branch block Left anterior fascicular block Bifascicular block NO SIGNIFICANT CHANGE FROM PRIOR TRACING Electronically Signed On 06-01-2024 11:04:48 PST by Richard Roberts MD
[2024-06-01 10:37] LABS: Add Manual Diff / Slide Review NO; Basophils Absolute Auto 100 /uL (0-100); Basophils Percent Auto 1.1 % (0-2); Eosinophils Absolute Auto 200 /uL (0-450); Eosinophils Percent Auto 3.6 % (2-4); Hematocrit 41.9 % (41-53); Hemoglobin 14.2 g/dL (13.5-17.5); Lymphocytes Absolute Auto 1600 /uL (1100-4500); Lymphocytes Percent Auto 25.3 % (25-40); Mean Corpuscular HGB Conc 33.8 % (30-36); Mean Corpuscular Hemoglobin 32.6 PG (26-34); Mean Corpuscular Volume 96.5 fL (80-100); Monocytes Absolute Auto 600 /uL (0-900); Monocytes Percent Auto 10.2 % (3-14); Neutrophils Absolute Auto 3800 /uL (1500-7000); Neutrophils Percent Auto 59.8 % (50-75); Platelet Count 253 X10^3/uL (150-400); Red Blood Cell Count 4.34 X10^6/uL (4.5-5.9); Red Cell Distribution Width 13.3 % (11.6-14.8); White Blood Cell Count 6.3 X10^3/uL (4.5-11.0)
[2024-06-01 10:58] LABS: BUN Creatinine Ratio 15.5 (6-22); Blood Urea Nitrogen 13 mg/dL (9-20); Calcium 9.8 mg/dL (8.4-10.2); Carbon Dioxide 26 mmol/L (22-32); Chloride 106 mmol/L (98-107); Estimated Glomerular Filt Rate > 60 mL/min (>60); Glucose 110 mg/dL (80-110); HEMOLYSIS < 15 (0-50); Potassium 4.4 mmol/L (3.4-5.1); Sodium 139 mmol/L (137-145)
== END ==
LOC: RESP 10:00
PROVIDERS: PCP Family Medicine; Referring Provider Orthopaedic Surgery Foot and Ankle Surgery; Visit Provider Orthopaedic Surgery Foot and Ankle Surgery
DX: Z01.818 Encounter for other preprocedural examination (principal); Z01.812 Encounter for preprocedural laboratory examination
CPT/HCPCS: 36415; 80048; 85025; 93005

== ENCOUNTER 2024-07-20 09:33 | Day surgery (SDC) | payer MEDICARE, SELFPAY ==
[2022-05-12 16:41] VITALS: BMI 23.3
[2024-07-13 10:49] VITALS: BMI 25.1
[2024-07-20] VITALS (8 sets, daily range): BP systolic 127–148; BP diastolic 75–82; PULSE 66–86; RESP 15–20; TEMP 36.2–36.8; O2SAT 93–97; BMI 25.1
--- NOTE | 2024-07-20 09:00 | DI.RAD.S_ITS ---
PROCEDURE: XR KNEE RT 1TO2V INDICATIONS: total right knee TECHNIQUE: 2 view(s) of the knee acquired. COMPARISON: None. FINDINGS: Bones: Patient is status post knee joint arthroplasty. Hardware components are in expected positions. Visualized bony structures are intact. Soft tissues: Overlying postoperative changes are noted. IMPRESSION: Expected post-operative appearance of a knee arthroplasty. Dictated by: Grayson Allen M.D. on 07/20/2024 at 16:52 Approved by: Grayson Allen M.D. on 07/20/2024 at 16:53
[2024-07-20] MEDS: LACTATED RINGERS 1,000 ML 42 ML IV (09:52)
[2024-07-20] MEDS: CELECOXIB 200 MG CAPSULE 400 MG PO (09:52)
--- NOTE | 2024-07-20 12:19 | PM.PREOP ---
Pre-operative Note Interval Note History & Physical reviewed/Exam performed by Physician: Yes Changes to H&P: No
--- NOTE | 2024-07-20 12:21 | PM.OP.1 ---
Operative Date/Time/Diagnoses Date of procedure: 07/20/24 Time of procedure: 13:00 Pre-op diagnosis: Right knee arthritis Post-op diagnosis: same Procedure & Clinicians Procedure: Right total knee arthroplasty CPT code 85938 Robotic assisted surgery [id number] Computer navigation assisted [id number] Same procedure as scheduled: Yes Indications: The patient is a 84-year-old male with end-stage [id number] knee arthritis. The patient has a significant right knee arthritis. They have failed conservative treatment with activity modifications, injections, physical therapy and bracing. They has been indicated for total knee replacement. The risks and benefits of the procedure have been discussed with the patient even opportunity to ask questions. The risks of surgery include but are not limited to infection, malunion, nonunion, fracture, loosening, persistence of pain, damage to nerves and blood vessels, need for additional procedures, DVT, PE, cardiopulmonary complications and . The patient expressed a thorough understanding of the risks and benefits of surgery and has elected to proceed. Consent was signed in the office. During the operation the services of physician certified surgical assistant were medically indicated and necessary to provide the exposure of the operative site for the surgical procedure and to maintain the limb in a proper position to carry out the procedure safely and efficiently. Without a qualified blacksmith assistant being present this would extend the operative procedure and would have made the procedure more technically difficult to perform. The certified surgical assistant was medically necessary for the proper positioning, retraction and manipulation of the limb, proper exposure, and manipulation of the tissue for implantation implants and closure. Surgeon: Florencia Martino Wheel Aligner: Khoa Arroyo Click Yes if Unassisted: Yes Anesthesia Type: General, Peripheral nerve block and Local Operative Notes Findings: Right knee arthritis Closure Type: primary Specimen(s): none sent Prosthetic devices, grafts, tissues, transplants, or devices: Bone and nephew journey 2 bcs total knee arthroplasty Femur cobalt chromium 6 Tibia6 Patella 35x 7.5 Poly 9mm Estimated Blood Loss (mL): 30 Blood products transfused: none Tourniquet time (min): 77 Procedure in detail: Patient was seen in the preoperative area where the patient and site of surgery were identified in the operative knee was marked informed consent confirmed. This was the right knee. Patient received the appropriate preoperative antibiotics this was 2 g of Ancef. And other preoperative medications and was taken to the operating room placed on operating table in the supine position. Spinal anesthetic were administered. The operative extremity was then prepped and draped in the standard sterile fashion with a nonsterile tourniquet high on the thigh. Patient was placed on the green foam bolsters. A lateral post was placed at the level of the proximal thigh /trochanter area as a lateral post. Formal time-out procedure was performed confirming the patient's side and site of surgery and administration of appropriate preoperative antibiotics and implants were in the room accounted for. All were in agreement. Patient received a preoperative dose of tranexamic acid and then a 2nd dose at tourniquet release Patient was prepped and draped in the standard sterile fashion and the foot was placed into the leg hays. This was taken into high flexion and the incision was marked out over the anterior knee to the level of the medial tubercle tubercle. The Esmarch was then used for exsanguination and the tourniquet was inflated to 250 mmHg. Was made through the skin and subcutaneous tissue in high flexion this was then brought down into 30? of flexion for the medial parapatellar arthrotomy. A marker pen was used to eloy the arthrotomy site for later repair. Joint fluid was evacuated. The anterior osteophytes and soft tissues were removed. Routine medial release was initially made along the medial proximal tibia with Bovie. The patella was 1st cut using the saw sized and prepped and then subluxed throughout the case and protected. The leg was then taken into extension and the patella was everted and the patella was cut to accommodate the patellar button. This was sized to a 35 mm button for a 7.5 mm thickness to recreate the original dimensions of the patella. Poly was removed and the protector replaced and the patella was subluxed and the knee was taken back up into flexion and attention was returned to the femur. Then the rotational landmarks of Whitesides line and the trans epicondylar axis were marked on the femur with electrocautery. ACL and PCL were released. Then the Cori robotic pins were placed into the femur and tibia and the race set up. Landmarks were established and the robotic planning was commenced. Plan was developed and improved and adjusted as necessary to create a balanced knee. Robotic assisted used for achievement of neutral alignment. 5? of external rotation was placed in the distal femur. Neutral cut in the femur and tibia and 3? of flexion in the distal femur the standard 3? of slope in the tibia. This balanced the knee 1-2 mm medial and lateral in flexion and extension. Plan was satisfactory the bur was used to remove the distal femur then the 5 in 1 cutting block was applied complete the femur cuts. Attention was then turned to the tibia and the tibial resection was made in accordance with the robotic planning. The trials were placed. And the femoral notch was cut a standard fashion using Reamer then slap hammer. The knee was trialed and the checked. Knee was balanced in flexion extension. Range of motion 0-140 degrees was obtained. The rotation femoral trial was marked Bovie on the bone and checked with a long edd. The tibia was then finished with a drill and flange cut and then The trial implants were removed. Then in extension the posterior capsule was injected with a mixture of 40 mL of 0.25% Marcaine and 20 mL of Exparel care to avoid excessive injection posterior laterally. The remainder of this was saved for the capsule and subcutaneous tissue and placed during cement curing. The wound and bone was irrigated with pulsatile lavage. This was then dried with a sponge. The components were verified and opened and the cement was mixed. Cement was applied to the components and then to the bone then the tibia was cemented in place 1st followed by the femur then the patella. Excess cement was removed. With care looking around the back of the knee. Remainder of the injection was injected around the capsule. trial poly was placed back in the leg was placed into extension for the patellar cementing. After this was cured approximately 15 minutes later and the dilute Betadine solution was placed for at least 3 minutes in the wound this was then irrigated out and the final poly was placed. This was a nine mm poly. The tourniquet was released hemostasis was achieved. Final 1g of tranexamic acid was given IV at the time of tourniquet release. The capsule was closed with 1. Ethibond suture. Followed by a running Quill stitch. Subcutaneous layer was closed with 3-0 Vicryl suture. Skin was closed with a running V lock suture Stratafix Monocryl type suture and Dermabond. An radha dressing was placed . An Ezekiel wrap was applied. Anesthetic was terminated the patient was woken from anesthesia and taken to recovery room in good condition. There no immediate complications from this procedure. The patient will be maintained on a standard total knee replacement protocol with weight-bearing as tolerated. Complications: none Post-operative Condition: stable Disposition: PACU Plan for aftercare: Standard total knee postop. 81 mg aspirin b.i.d. x6 weeks for DVT prophylaxis. Full weight-bearing. Immediate range of motion. Commence physical therapy within 1 week. Follow up in Orthopedic Clinic in 2 weeks.
--- NOTE | 2024-07-20 12:56 | SUR.PREOP ---
1234 - Block start time [1234 timeout.] with block started at 1235. Monitoring initiated and maintained throughout procedure. Oxygen and medications given per anesthesiologist. Patient remained stable throughout procedure, no adverse reactions noted. Block end time [1240 ].
[2024-07-20] MEDS: TRANEXAMIC ACID 1,000 MG in SODIUM CHLORIDE 0.9% 100 ML 200 MG IV ×2 (13:10→14:45)
[2024-07-20] MEDS: CEFAZOLIN 2 GM/100 ML PREMIX 100 ML IV (13:10)
--- NOTE | 2024-07-20 13:29 | SUR.OPER ---
Supine on padded OR bed. Pillow under head, arms secured on padded armboards <90 degree abduction. Safety belt across torso. left leg secured with tape over blanket over lower leg. Right leg secured in DeMayo positioner by surgeon. Foam padded brace at thigh of operative leg.
[2024-07-20] MEDS: BUPIVACAINE LIPOSOME 266 MG/20 ML VIAL INJ (14:30)
[2024-07-20] MEDS: BUPIVACAINE 0.25% W/ EPI 30 ML VIAL 60 ML INJ (14:31)
--- NOTE | 2024-07-20 17:41 | PT.IIE ---
Current Diagnoses Bilateral primary osteoarthritis of knee (07/20/24) Unilateral primary osteoarthritis, right knee (07/20/24) Other specified joint disorders, unspecified knee (07/20/24) Surgery Performed Operation Date: 07/20/24 11:45 Actual Procedures p Total Knee Arthroplasty - Robot(Right) - Florencia Martino MD Surgical History (Last Updated 07/13/24 @ 10:56 by Nereyda Bal RN) H/O vasectomy History of lumbar spinal fusion (05/12/22) Hx of fusion of cervical spine (~1997) Hx of sinus surgery Hx of tonsillectomy Medical History (Last Reviewed 05/13/22 @ 11:14 by Nadine Garcia PA-C) HLD (hyperlipidemia) Hypothyroidism Preglaucoma Spinal stenosis Physical Therapy Inpatient Evaluation/Re-Eval M1 PT/OT-IP Prior Functional Status Start: 07/20/24 16:56 Freq: NEEDED Status: Active Protocol: Document 07/20/24 15:00 MB (Rec: 07/20/24 17:41 [id number]) Medical Review Prior Functional Status Mobility and Gait I, lives alone, borrowed RW for surgery Social History Household Members none Living Arrangements House Number of Floors (Floors) One Floor Number of Stairs To Enter/Railing? 1 step up to enter, friend to drive him home and stay with him Home Environment High Toilet,Walk in Shower Home Equipment Front Wheel Walker,Shower Seat with Backrest,Hand Held Shower Employment Status Retired M2 PT-IP Current Condition Start: 07/20/24 16:56 Freq: NEEDED Status: Active Protocol: Document 07/20/24 15:00 MB (Rec: 07/20/24 17:41 MB [id number]) Physical Therapy Current Condition Current Condition Evaluation Date 07/20/24 Treatment Diagnosis R TKA M3 PT-IP Subjective Start: 07/20/24 16:56 Freq: NEEDED Status: Active Protocol: Document 07/20/24 15:00 MB (Rec: 07/20/24 17:41 MB [id number]) Subjective Physical Therapy Visit Type Type Initial Evaluation Visit Start Time 15:00 Visit Stop Time 15:30 Number of ICE SELLER Visits 0 Physical Therapy Visit Comments Patient Comments Pt up in transport w/c with friend nearby and receiving nsg education, ready to use BR and d/c Therapy Pain Assessment Pain When Pain Assessed At Rest Pain Present Pain Present Pain Reported Location Right knee Scale Used Not rated, stiff with mobility M4 PT-IP Mobility and Gait Start: 07/20/24 16:56 Freq: NEEDED Status: Active Protocol: Document 07/20/24 15:00 MB (Rec: 07/20/24 17:41 [id number]) PT-Transfer Assessment Sit to and From Stand Sit to and from Stand Standby Assistance Equipment Transfer Assistive Device Gait Belt,Front Wheeled Walker Transfers Transfer Destination Toilet Transfer Technique Ambulation Transfer Ability Level of Assist Standby Assistance,1 Person Assistance,Use of Upper Extremities Comments Mobility Comments Right knee stiffiness with STS and starting ambulation Gait Assessment Gait Gait Assistance Required: Standby Assistance,Contact Guard Assist Distance (Feet) 40 Able to Maintain Weight Bearing Status Yes During Gait Assistive Devices Assistive Device Gait Belt,Front Wheeled Walker Orthotic/Prosthetic Devices or Brace: No Gait Deviations General Gait Pattern Antalgic,Decreased Stride Length,Decreased Feet Clearance,Flexed Trunk,Narrow Based Gait,Step-to Gait Factors Limiting Gait Function Factors Limiting Gait Function Decreased Activity Tolerance, Decreased Strength,Limited Range of Motion,Pain Stair Climbing Assessment Comments Stair Climbing Comments Pt has one step up into home and PT demonstrates walker up, then left foot and then right foot for ascend and pt and friend verbalize understanding PT-Balance Assessment Standing Balance and Reactions Static Standing Balance Ability Good Dynamic Standing Balance Ability Good Device Used RW M5 PT-IP Objective Assessments Start: 07/20/24 16:56 Freq: NEEDED Status: Active Protocol: Document 07/20/24 15:00 MB (Rec: 07/20/24 17:41 [id number]) Orientation Orientation/Cognition Level of Alertness Alert Orientation Name,Age,Birthday,Month,Date, Year,Day of Week,Place, Situation Language Function Ability No Deficits Noted Safety Awareness Understands Safety Issues Memory Description No Deficits Noted Gross Range of Motion Upper Extremity ROM Impairments NT Lower Extremity ROM Assessment Right Impaired Impairments Knee flexion in sitting to at least 85 deg this p.m. Strength Comments Strength Comments MMT deferred given pain and pt getting ready to leave, functional for gait Coordination Assessment Assessment Coordination Comments NT Sensation Assessment Comments Sensation Comments NT, denies numbness M6 PT-IP Treatment Start: 07/20/24 16:56 Freq: NEEDED Status: Active Protocol: Document 07/20/24 15:00 MB (Rec: 07/20/24 17:41 MB [id number]) Physical Therapy Treatment Exercises Exercises Ankle Pumps,Gluteal Sets,Quad Sets,Heel Slides Education Education Provided Weight Bearing Status,Post-Op Packet,Safety Other Treatments Other Treatment Performed Ed pt on benefits of icing 20 min several times a day, heel- toe step-through gait when he can, can work up to SAQ in supine if he can, provided handouts M7 PT-IP Assessment and Plan Start: 07/20/24 16:56 Freq: NEEDED Status: Active Protocol: Document 07/20/24 15:00 MB (Rec: 07/20/24 17:41 MB [id number]) PT Summary Assessment and Plan Potential Rehabilitation Potential Good Status of Condition at Evaluation Evolving Summary Impairments Pain,ROM,Strength,Balance, Sensation,Bed Mobility, Transfers,Gait,Activity Tolerance Progress Towards Goals Progressing Toward Goals Assessment Summary Pt is an 84 y/o male looking good post-op and PACU nsg reporting no BP concerns. He is up in w/c upon arrival and preparing to toilet and d/c. Provided education and minimal assessment. He is d/cing home with friend's help who will stay with him and OPPT scheduled 07/27/24. Frequency of Treatment Frequency Of Treatment Discharge Weight Bearing Status Weight Bearing Status Weight Bear as Tolerated Recommendations To Nursing Amount of Assist Needed Standby Assistance Discharge Recommendations PT Discharge Recommendations Home with 10/11 Assist Available,Outpatient PT Transportation Needs at Discharge Private Vehicle
== END 2024-07-20 17:46 | disposition home or self-care (01) ==
LOC: OR 09:35 → AC 09:35
PROVIDERS: PCP Family Medicine; Referring Provider Orthopaedic Surgery Foot and Ankle Surgery; Visit Provider Orthopaedic Surgery Foot and Ankle Surgery
PROC: 0SRC0JZ Replacement of Right Knee Joint with Synthetic Substitute, Open Approach (ICD-10-PCS; CPT 27447; principal; 2024-07-20 11:45)
DX: M17.11 Unilateral primary osteoarthritis, right knee (principal); G89.18 Other acute postprocedural pain; Z87.891 Personal history of nicotine dependence; M25.751 Osteophyte, right hip
CPT/HCPCS: 27447; 64450; 73560; 97161; 97535; C1776; C1713; J0666; J0690; J1100; J2405; J2704